=== PATIENT | female | born 1980 | race Hispanic/Latino ===

== ENCOUNTER 2016-10-26 14:46 | Emergency (ER) | payer OTHER ==
[2016-10-26 15:10] VITALS: BMI 26.1
--- NOTE | 2016-10-26 15:56 | OBHP ---
Datetime: 10/26/2016 15:48 IP Adm Impression: , intrauterine ; No Active Labor; Intact Membranes IP Admit Plan: Observation/Evaluation; Discharge home Admit Comment, IP Provider: The patient is a 36-year-old 6 para 3 last menstrual period 02/01 estimated due date 11/27/2016 estimated gestational age 36 weeks. Patient presents to labor an d delivery complaining of headache and some nausea and episode of vomiting some diarrhea over the cou rse of the last week. Patient denies any ill contacts at home. Patient denies fever or chills. Zeyad pang's care has been unremarkable, she reports good movement and no vaginal bleeding no c ontractions or leakage of fluid. Past medical history none Past surgical history gallbladder resection Medications vitamins No known drug allergies Social history tobacco use denies alcohol or drug use Obstetrical history 2 previous deliveries 1 twins second infante Past medical history none Review of systems patient denies blurred vision chest pain shortness of breath palpitations consti pation dysuria heat or cold intolerance vaginal bleeding dysuria easy bruisability musculoskeletal or neurological complaints Vital signs stable afebrile Physical exam see notes Intrauterine 36 weeks IV fluid hydration, Zofran External monitor Reviewed records from Dr. Diaz's office Observation wiht possible discharge Pelvic Type - PN: Adequate Extremities - PN: Normal Abdomen - PN: Normal Back - PN: Normal Breast - PN: Not Done Lungs - PN: Normal Heart - PN: Normal Thyroid - PN: Normal Neurologic - PN: Normal HEENT - PN: Normal General - PN: Normal Presentation-Admit: Vertex FHR - Baseline A Provider: 145 Gestation - Est Wks by US: 36.0 EGA AdmitDate IP: 35.3 Vital Signs Provider: Reviewed IP Chief Complaint: Illness; Other NICHD Variability Prov Fetus A: Moderate 6-25bpm NICHD Accel Fetus A IP Provider: [id number] FHR Category Provider Fetus A: Category I NICHD Decel Fetus A IP Provider: None Dilatation, Provider: 0 Effacement, Provider: 0 Station, Provider: p-2 Genitourinary Exam: Normal DTRs - PN: Normal
[2016-10-26] MEDS ORDERED: Lactated Ringer's 1,000 ML IV ONE (15:57)
[2016-10-26 16:50] LABS: ALKALINE PHOSPHATASE 104 U/L (38-126); ALT/SGPT 14 U/L (9-52); AST/SGOT 14 U/L (14-36); BILIRUBIN,TOTAL 0.1 mg/dl (0.2-1.3); BLOOD UREA NITROGEN 7 mg/dl (7-17); CALCIUM 9.2 mg/dL (8.4-10.2); CARBON DIOXIDE 23 mmol/L (22-30); CHLORIDE 104 mmol/L (98-107); GFR AFRICAN-AMERICAN > 60; GLUCOSE,RANDOM 85 mg/dL (65-105); POTASSIUM 3.9 MMOL/L (3.6-5.0); SODIUM 132 mmol/l (132-148); TOTAL PROTEIN 5.8 G/DL (6.3-8.2)
[2016-10-26 17:30] LABS: BASO # 0.1 K/uL (0.0-0.2); BASO % 0.4 % (0.0-2.0); EOS # 0.2 K/uL (0.0-0.7); EOS % 1.3 % (0.0-4.0); HEMATOCRIT 28.9 % (34.0-47.0); LYMPH # 3.6 K/uL (1.0-4.3); LYMPH % 21.2 % (20.0-40.0); MEAN CELL VOLUME 94.5 fl (81.0-99.0); MEAN CORPUSCULAR HEMOGLOBIN 31.4 pg (27.0-31.0); MEAN CORPUSCULAR HGB CONC 33.3 g/dL (33.0-37.0); MONO # 1.1 K/uL (0.0-0.8); MONO % 6.7 % (0.0-10.0); NEUT # 12.1 K/uL (1.8-7.0); NEUT % 70.4 % (50.0-75.0); RED CELL DISTRIBUTION WIDTH 13.2 % (11.5-14.5); WHITE BLOOD COUNT 17.2 K/uL (4.8-10.8)
[2016-10-26 17:49] LABS: RBC URINE < 1 /hpf (0-3); URINE BILIRUBIN NEGATIVE (NEGATIVE); URINE BLOOD NEGATIVE (NEGATIVE); URINE COLOR YELLOW (YELLOW); URINE GLUCOSE (UA) NEG (Normal); URINE KETONE TRACE mg/dL (NEGATIVE); URINE LEUKOCYTE ESTERASE NEG Leu/uL (Negative); URINE PROTEIN 30 mg/dL (NEGATIVE); URINE UROBILINOGEN 0.2-1.0 mg/dL (0.2-1.0); WBC URINE 1 /hpf (0-5)
--- NOTE | 2016-11-02 21:34 | OBHP ---
Datetime: 11/02/2016 21:28 IP Adm Impression: , intrauterine IP Admit Plan: Observation/Evaluation; Discharge home Admit Comment, IP Provider: The patient is a 36-year-old 6 para 3 last menstrual period 02/01 estimated due date 11/27/2016 estimated gestational age 36 weeks. Patient presents to labor an d delivery complaining of uterine contractions last 2 hours. Patient's care has been unremar kable, she reports good movement and no vaginal bleeding no contractions or leakage of fluid. Past medical history none Past surgical history gallbladder resection Medications vitamins No known drug allergies Social history tobacco use denies alcohol or drug use Obstetrical history 2 previous deliveries 1 twins second infante Past medical history none Review of systems patient denies blurred vision chest pain shortness of breath palpitations consti pation dysuria heat or cold intolerance vaginal bleeding dysuria easy bruisability musculoskeletal or neurological complaints Vital signs stable afebrile Physical exam see notes Intrauterine 36 weeks IV fluid hydration, UA will call PMD Review medical records External monitor Observation wiht possible discharge Pelvic Type - PN: Adequate Extremities - PN: Normal Abdomen - PN: Normal Back - PN: Normal Breast - PN: Not Done Lungs - PN: Normal Heart - PN: Normal Thyroid - PN: Normal Neurologic - PN: Normal HEENT - PN: Normal General - PN: Normal Presentation-Admit: Vertex FHR - Baseline A Provider: 145 Gestation - Est Wks by US: 36.0 EGA AdmitDate IP: 36.3 Vital Signs Provider: Reviewed IP Chief Complaint: Uterine contractions NICHD Variability Prov Fetus A: Moderate 6-25bpm NICHD Accel Fetus A IP Provider: [id number] FHR Category Provider Fetus A: Category I NICHD Decel Fetus A IP Provider: None Dilatation, Provider: 0 Effacement, Provider: 0 Station, Provider: -2 Genitourinary Exam: Normal DTRs - PN: Normal
== END 2016-10-26 19:55 | disposition home or self-care (01) ==
LOC: EDBD → H.EROB2 14:46
DX: O26.93 Pregnancy related conditions, unspecified, third trimester (principal); Z3A.36 36 weeks gestation of pregnancy; R51 Headache; O21.0 Mild hyperemesis gravidarum

== ENCOUNTER 2016-11-02 21:40 | Emergency (ER) | payer OTHER ==
[2016-11-02 21:43] VITALS: BMI 25.8
[2016-11-02] MEDS ORDERED: Lactated Ringer's 1,000 ML IV SCH ×2 (22:00→23:00)
[2016-11-02 22:38] LABS: MEAN CELL VOLUME 94.5 fl (81.0-99.0); MEAN CORPUSCULAR HEMOGLOBIN 31.6 pg (27.0-31.0); MEAN CORPUSCULAR HGB CONC 33.4 g/dL (33.0-37.0); RED CELL DISTRIBUTION WIDTH 13.2 % (11.5-14.5); WHITE BLOOD COUNT 15.6 K/uL (4.8-10.8)
[2016-11-02 22:41] LABS: RBC URINE 3 /hpf (0-3); URINE BACTERIA OCC (<OCC); URINE BILIRUBIN NEGATIVE (NEGATIVE); URINE BLOOD NEGATIVE (NEGATIVE); URINE COLOR YELLOW (YELLOW); URINE GLUCOSE (UA) NEG (Normal); URINE KETONE NEGATIVE (NEGATIVE); URINE LEUKOCYTE ESTERASE NEG Leu/uL (Negative); URINE PROTEIN NEGATIVE (NEGATIVE); URINE UROBILINOGEN 0.2-1.0 mg/dL (0.2-1.0); WBC URINE 2 /hpf (0-5)
== END 2016-11-02 22:40 | disposition home or self-care (01) ==
LOC: H.EROB2 21:40 → EDBD 21:40 → H.EROB2 22:40
DX: O60.03 Preterm labor without delivery, third trimester (principal); Z3A.36 36 weeks gestation of pregnancy